=== PATIENT | female | born 1945 | race Caucasian/White ===

== ENCOUNTER 2017-08-14 23:14 | Emergency (ER) | payer MEDICARE, MEDICAID ==
[2017-09-13] MEDS ORDERED: LEVOXYL50 MCG PO (14:08)
[2017-09-13] MEDS ORDERED: GLUCOPHAGE500 MG PO (14:08)
[2017-09-13] MEDS ORDERED: NORVASC5 MG PO (14:08)
[2017-09-13] MEDS ORDERED: LIPITOR40 MG PO (14:09)
[2017-09-13] MEDS ORDERED: METOPROLOL TART50 MG PO (14:09)
[2017-09-13] MEDS ORDERED: MULTI-DAY VITAM1 TAB PO (14:09)
[2017-09-15 21:32] VITALS: BMI 19.9
== END 2017-08-15 00:15 | disposition home or self-care (01) ==
LOC: D.ER 23:14
DX: N81.10 Cystocele, unspecified (principal); B37.3 Candidiasis of vulva and vagina; E11.9 Type 2 diabetes mellitus without complications

== ENCOUNTER 2017-09-15 05:24 | Day surgery (SDC) | payer MEDICARE, MEDICAID ==
[2017-09-13 15:18] LABS: HEMATOCRIT 38.3 % (36.0-48.0); HEMOGLOBIN 12.6 g/dL (12-16); MCH 31.3 pg (26.0-34.0); MCHC 32.9 g/dL (31.0-37.0); MEAN PLATELET VOLUME 10.6 fL (7.4-10.4); RBC 4.03 10x6/uL (4.00-5.40); RDW 12.7 % (11.5-14.5); WBC 7.8 10x3/uL (4.8-10.8)
[2017-09-13 15:27] LABS: ANION GAP 12.4 mmol/L (8-16); CALCIUM 10.6 mg/dL (8.5-10.1); CARBON DIOXIDE 28.6 mmol/L (21.0-32.0); CREATININE - SERUM 0.9 mg/dL (0.6-1.3)
[~2017-09-15] VITALS: Ht 152.4 cm; Wt 45.5 kg
--- NOTE | ~2017-09-15 | OP ---
PATIENT NAME: SAAD ROYAL MEDICAL RECORD: [id number] :46 LOCATION:[facility]1219 ADMISSION DATE: SURGEON: ANTONIO RODAS MD DATE OF OPERATION: 09/15/2017 SURGEON: Antonio Rodas MD ANESTHESIA: General anesthesia by Dr. Serrano. DIAGNOSES: Female stress urinary incontinence; cystocele grade II ([place]-Walker scale), rectocele grade II. PROCEDURES: Cystoscopy; cystocele repair with mesh, [employer] Uphold; pubovaginal sling with mesh, [employer] Obtryx; and rectocele repair with levator ani plication. SPECIMEN: Posterior vaginal wall mucosa. FINDINGS ON CYSTOSCOPY: Single ureteral orifices bilaterally. No bladder tumors. No bladder injury. BLOOD LOSS: 150 mL. CLINICAL HISTORY: This is a 72-year-old female, G1, P1, A0, who lives in [place], [place]. She was complaining of pelvic prolapse, which she noticed over 2 months ago. It started as a vaginal bulge, but now it comes completely out of the vaginal introitus. When she goes to bed, it will actually retract back. She also describes difficulty voiding because of the prolapse as well as stress urinary incontinence with coughing and sneezing. She claims that she has had a hysterectomy, but on examination under anesthesia today, I do see a cervix, so if she has had a hysterectomy she still has the cervix or she may not have had a hysterectomy at all. Nevertheless, she wants the cystocele, rectocele and stress urinary incontinence repaired. She is aware of the risks of mesh use and she is willing to accept that risk. Because of [place] location in [place] she [place], I will be keeping her overnight before sending her home. She lives alone. SHE IS ALLERGIC TO PENICILLIN. 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 DESCRIPTION OF PROCEDURE: The patient was given induction of general anesthesia. She was then placed into dorsal lithotomy position and prepped and draped. A 16-Syrian Torres catheter was placed into the bladder and put to bag drainage. A weighted speculum was used to hold down the posterior vaginal wall. The labia majora were retracted laterally with stay sutures of #2 nylon, which were anchored into the medial thighs. The cystocele was quite evident. The anterior vaginal wall was infiltrated with vasopressin solution. Twenty units of vasopressin was dissolved in 100 cc of injectable saline. This was used for hydrodissection in the plane between the anterior vaginal wall and the bladder. A transverse incision at the level of the bladder neck was made. We then dissected using Metzenbaum scissors into the plane between the bladder and the anterior vaginal wall mucosa. Laterally, we went to the pubocervical fascia and broke it down. This allowed us to get to the obturator membrane anterolaterally. Posteriorly, we entered the presacral space where we could identify the ischial spine and its attached sacrospinous ligament. Once the dissection was complete, we then inserted our [employer] Uphold graft for the cystocele repair for the graft arms going posteriorly. We landmarked the OPERATIVE REPORT [id number] SAAD ROYAL sacrospinous ligament at the ischial spine. The Capio suture speedboat driver was then placed medial to the ischial spine in order to avoid the internal pudendal artery and pudendal nerve. The suture was fired and the graft arm was pulled through and tension on the graft arm revealed that we were indeed through the ligament as it was quite strong. This was done on each side. Cystoscopy was then performed to make sure that there was no injury to the bladder and indeed there was no injury to the bladder. The dissection had also brought the vaginal mucosa exposure to the level of the cervical ring. At the level of the cervical ring, we placed two #2-0 Vicryl sutures. They will hold the posterior apex of the cystocele repair graft at the level of the cervix. The two sutures were placed and then the arms of the sutures were placed through the posterior apex of the graft, which was marked by a white stripe. Once they were in place, they were tied down. The graft arms were also pulled through and this resulted in complete reduction of the cystocele. A tacking suture of 2-0 Vicryl was also placed at the anterior apex of the graft, near the bladder neck. This completed the cystocele repair. We then landmarked for the pubovaginal sling. The landmark for the pubovaginal sling was at the inferior border of the adductor longus muscle where it inserts onto the descending pubic ramus. At this point, a rosmery was made using a marking pen. The helical trocar was then placed going behind the descending pubic ramus and through the apex of the obturator membrane anteriorly. The trocar then ended up into the vaginal dissection space. The graft arm of the [employer] Obtryx graft was then placed onto the tip of the helical trocar and it was pulled out to result in a transobturator passage of the sling. This was done on each side. We then repeated cystoscopy and again ensured that there was no bladder injury. While cystoscopy was being done, we filled the bladder up through the cystoscope using normal saline. By putting suprapubic pressure manually, I could elicit leakage of saline through the urethra. The tab on the mid portion of the graft was removed, allowing the graft to fit completely flat under the mid urethra. As we gradually increase the tension, we could no longer get leakage by applying even quite strong suprapubic pressure. At this point, we ceased to apply any further tension. There was a clear plastic sheath material wrapping the graft arms on both the graft arms of the sling and the cystocele repair graft. The sutures that were used to hold these were cut and then the clear plastic wrapping material was removed entirely from both the sling and the cystocele repair graft arms. The graft arms from the Obtryx were cut where they exited the skin. The skin incision was then closed using Dermabond. The graft arms from the cystocele repair, the Uphold graft arms, were cut close to the sacrospinous ligament and the ischial spine. At this point, the wound was irrigated out using normal saline containing gentamicin. The vaginal incision was closed using running 4-0 Monocryl. We then focused on the rectocele repair. The weighted speculum was removed. We used Candelaria retractors for manual retraction. On the posterior vaginal wall, a ellen shaped area was marked out and infiltrated with Pitressin solution. This was for hydrodissection and the plane between the posterior vaginal wall and the rectum. The ellen was incised using a #15 blade and then the mucosa was undermined with Metzenbaum scissors and completely removed from the anterior vaginal wall surface. This serves as our specimen, which was going to pathology. All around the circumference of this incision, we dissected with Metzenbaum scissors laterally as well as cranially. Once we encountered the levator ani muscles on either side, we were then able to put 2-0 horizontal mattress plication sutures of Prolene. These were applied using the Capio OPERATIVE REPORT [id number] SAAD ROYAL suture speedboat driver. About 6 of these horizontal mattress sutures were placed and tied down to form a shelf where the muscle from both sides were approximated in the midline over the rectum and this reduced the rectocele. For the final plication suture, I used 2-0 Vicryl as it will be right through the perineal body. The wound was then irrigated out with saline and then the vaginal mucosa was closed using running 4-0 Monocryl. The vagina was then packed using Kerlix infiltrated with Premarin cream. This will be removed later on. The Torres catheter was removed. The patient was awakened and brought to the recovery room. She will be kept for 23-hour observation. TRANSINT:[id number] Voice Confirmation ID: [id number] DOCUMENT ID: [id number] ANTONIO RODAS MD at 1441 CC: [id number] DICTATION DATE: 09/15/17 1301 HEADEND TECHNICIAN: 09/15/17 1406 [facility] [address] [place] [address]
[~2017-09-15 05:24] MED LIST: GLUCOPHAGE500 MG PO; LEVOXYL50 MCG PO; LIPITOR40 MG PO; METOPROLOL TART50 MG PO; MULTI-DAY VITAM1 TAB PO; NORVASC5 MG PO
[2017-09-15 07:43] VITALS: BP 146/77; BMI 19.9
[2017-09-15 17:20] VITALS: BP 128/65; BMI 19.9
[2017-09-15 21:32] VITALS: BP 121/37; Ht 152.4 cm; Wt 45.5 kg
[2017-09-16 01:44] VITALS: BP 112/36
[2017-09-16 05:40] VITALS: BP 117/54
[2017-09-16 08:25] VITALS: BP 112/51
[2017-09-16] MEDS ORDERED: HYDROCODON-ACE1 EAC7 PO (09:48)
[2017-09-16 12:02] VITALS: BP 95/41
[2017-09-16 12:12] LABS: BASOPHILS 0.2 % (0-2); EOSINOPHILS 0.3 % (0-7); HEMATOCRIT 30.1 % (36.0-48.0); HEMOGLOBIN 9.7 g/dL (12-16); IMMATURE GRANULOCYTES 0.4 % (0-5); LYMPHOCYTES 12.6 % (15-50); MCH 31.4 pg (26.0-34.0); MCHC 32.2 g/dL (31.0-37.0); MCV 97.4 fL (80.0-100.0); MEAN PLATELET VOLUME 10.1 fL (7.4-10.4); MONOCYTES 11.9 % (2-11); NEUTROPHILS 74.6 % (40-80); RBC 3.09 10x6/uL (4.00-5.40); RDW 13.3 % (11.5-14.5); WBC 13.7 10x3/uL (4.8-10.8)
[2017-09-16 12:13] LABS: PLATELET COUNT 146 10x3/uL (130-400)
== END 2017-09-16 15:46 | disposition home or self-care (01) ==
LOC: D.OPS 05:24 → D.WS 13:31 → D.M2 20:51 → D.OPS 09-16 15:46
PROVIDERS: Anesthesiology; Urology
DX: N39.3 Stress incontinence (female) (male) (principal); N81.11 Cystocele, midline; N81.5 Vaginal enterocele; N95.2 Postmenopausal atrophic vaginitis; I10 Essential (primary) hypertension; E11.9 Type 2 diabetes mellitus without complications; K21.9 Gastro-esophageal reflux disease without esophagitis; E05.90 Thyrotoxicosis, unspecified without thyrotoxic crisis or storm; Z01.812 Encounter for preprocedural laboratory examination